=== PATIENT | female | born 1960 | race Caucasian/White ===

== ENCOUNTER → 2020-05-21 16:14 | Outpatient (CLI) | payer OTHER, SELFPAY ==
--- NOTE | ~2020-05-21 | XR_ITS ---
EXAMINATION: XR ribs LT 2V w CXR 2V EXAM DATE: 05/21/2020 16:43 INDICATION: R07.81 - Pleurodynia . TECHNIQUE: Frontal projection of the left ribs, oblique projection of the left ribs, frontal and late ral chest x-ray(s) for interpretation. Comparison is made to prior examination from 05/22/2018. FINDINGS: There are no displaced acute left rib fractures identified. There is no soft tissue abnor mality seen. Moderate chronic hyperinflation. Midthoracic posterior fusion hardware at one level with mild to moderate anterior wedging of the lower fused level. No confluent consolidation, pneumothorax or pleural effusion suspected. IMPRESSION: No displaced left rib fractures. Chronic hyperinflation. Reviewed, dictated and finalized at location A.
--- NOTE | ~2020-05-21 | XR_ITS ---
EXAMINATION: XR thoracic spine 3V EXAM DATE: 05/21/2020 16:43 INDICATION: M54.9 - Dorsalgia, unspecified . TECHNIQUE: Frontal and lateral projections of the thoracic spine as well as lateral swimmers projecti on of the upper thoracic spine for interpretation. Comparison is made to prior examination from 2015. FINDINGS: There is mid thoracic posterior pedicular fusion hardware, might be at T6-7, with hardware intact. There is mild to moderate anterior wedging of the lower of these 2 vertebral bodies which is chronic and minimally progressed compared to prior study. This is causing some kyphosis. The vertebra l bodies are aligned in the AP dimension. No other compression fractures. Paraspinal soft tissue is u nremarkable. No appreciable scoliosis. IMPRESSION: Intact mid thoracic pedicular screws. Mild interval progression of T7 compression fractu re. Reviewed, dictated and finalized at location A. IMPRESSION: Intact mid thoracic pedicular screws. Mild interval progression of T7 compression fracture.
== END ==
PROVIDERS: PCP Family Medicine; Visit Provider Family Medicine
DX: M54.9 Dorsalgia, unspecified (principal); R07.81 Pleurodynia; R91.8 Other nonspecific abnormal finding of lung field; M48.54XA Collapsed vertebra, not elsewhere classified, thoracic region, initial encounter for fracture
CPT/HCPCS: 71046; 71100; 72072

== ENCOUNTER 2020-07-17 01:26 | Outpatient (CLI) | payer OTHER, SELFPAY ==
[2020-07-18 01:23] LABS: SARS-CoV-2 RNA PCR Negative
== END 2020-07-17 01:27 | disposition home or self-care (01) ==
LOC: ANHCOVIDDT 01:26
PROVIDERS: Visit Provider Internal Medicine Critical Care Medicine
DX: Z20.828 Contact with and (suspected) exposure to other viral communicable diseases (principal)
CPT/HCPCS: 87635; C9803; U0003

== ENCOUNTER 2020-07-20 07:48 | Outpatient (CLI) | payer OTHER, SELFPAY ==
--- NOTE | 2020-09-03 17:17 | WPDSLEEPSTUD ---
Sleep Study Date of Study: 07/20/20 Ordering Provider: Gracie Power MD Interpreting Physician: Gracie Power MD Sleep Study Type: Polysomnogram Height: 1.63 m Weight: 70.307 kg Body Mass Index: 26.6 Neck Circumference: 35.56 cm [place]: 12 Reason for Sleep Study SRAAH, has used CPAP, now using a mandibular advancement device Sleep History Palak Gramajo is a 60 year old female who was diagnosed with SARAH in 2011. She was not able to tolerate CPAP. She had a UPPP in 2012 for treatment of obstructive sleep apnea. In 2014 and again in 2017, she used CPAP. She is now on treatment with a mandibular advancement device. She wakes up during the night, and has excessive daytime sleepiness. She constantly snores, and it is always loud enought that others compalin about it. She Never awakens at night with heartburn, belching or coughing. She never wakens from sleep feeling short of breath. She rarely has trouble sleeping with a cold. She rarely wakes up gasping for breath during the night. She frequently has breathing problems reported to her by others. She occasionally sweats excessively at night and rarely notices her heart pounding or beating irregularly at night. She occasionally falls asleep during the day, rarely involuntarily, never while driving. She does not have loss of muscle tone with strong emotion. She occasionally has date occult he is due to excessive sleepiness. She works as a food inspector. she does not feel paralyzed on waking or falling asleep and does not have vivid dreamlike scenes upon awakening or falling asleep. She is not afraid to go to sleep. She occasionally has nightmares. She rarely remembers her dreams. She occasionally has racing thoughts. She occasionally has feelings of sadness, depression and anxiety. She rarely has muscular tension. She occasionally notices parts of her body jerking, occasionally kicks at night, occasionally has crawling and aching feelings in her legs and leg pain during the night. She rarely has morning jaw pain. She occasionally grinds her teeth during sleep. she rarely is bothered by pain during the day, rarely awakened by pain at night, rarely feels stiff in the morning with sore achy muscles or pain in the neck and spine. She has fatigue, memory problems, headaches and palpitations Normal bedtime is 9:30 p.m. falling asleep within an hour, waking twice at night to urinate. Sometime she walks around the house. She wakes in the morning at 5:30 a.m.. On the weekends she stays awake until 10:30 p.m. and wakes at 7:30 a.m. in the morning. She estimates that she gets 7-8 hours of sleep per night. she takes naps in the afternoon or evening. A short 10 or 15 minutes nap can be refreshing. She is usually drowsy in the morning for 2 hours or longer. Habits: Never smoked tobacco. Caffeine 1 cup per day. No alcohol. No recreational drugs. FORMERLY [facility] Past Medical History Medical History Anxiety Hypothyroidism Lumbar radiculopathy Mixed hyperlipidemia Nonintractable migraine SARAH (obstructive sleep apnea) Recurrent major depressive disorder, in partial remission Vitamin D deficiency Surgical History Surgical History History of thoracic spinal fusion Family History Family History Other Diabetes mellitus Family history of juvenile rheumatoid arthritis Social History Social History Smoking status: Never smoker Second hand tobacco smoke exposure: No Alcohol intake: current Alcohol use details: rare Substance use: never Substance use type: does not use Living arrangements: with family Occupation/Education: occupation Gender identity (if verbalized by the patient): Female Medications Home Medications Medication Instr
[2020-09-17 14:38] VITALS: BMI 26.6
== END 2020-07-20 07:49 | disposition home or self-care (01) ==
LOC: ANHCSM 07:49
PROVIDERS: Visit Provider Internal Medicine Critical Care Medicine
DX: G47.33 Obstructive sleep apnea (adult) (pediatric) (principal)
CPT/HCPCS: 95810

== ENCOUNTER 2020-11-29 09:48 | Outpatient (CLI) | payer OTHER, SELFPAY ==
--- NOTE | ~2020-11-29 | XR_ITS ---
EXAMINATION: XR thoracic spine 3V DATE: 11/29/2020 10:16 INDICATION: Thoracic back pain TECHNIQUE: AP, lateral and lateral swimmer's views of the thoracic spine were obtained. COMPARISON: 05/21/2020 FINDINGS: Again noted are changes of posterior fusion at T6 and T7. There is a stable anterior compre ssion deformity of T7. Severe loss of intervertebral disc space height is seen at T6-7. Bone alignmen t is normal. No new fracture is present. IMPRESSION: 1. Stable changes of posterior fusion at T6-7 and anterior wedging at T7 without acute findings or si gnificant interval change. Reviewed, dictated and finalized at location A. IMPRESSION: 1. Stable changes of posterior fusion at T6-7 and anterior wedging at T7 withou t acute findings or significant interval change.
== END 2020-11-29 09:49 | disposition home or self-care (01) ==
LOC: ANHIMG 09:54
PROVIDERS: PCP Family Medicine; Visit Provider Family Medicine
DX: M54.6 Pain in thoracic spine (principal); Z98.1 Arthrodesis status
CPT/HCPCS: 72072

== ENCOUNTER → 2021-01-21 17:02 | Outpatient (CLI) | payer OTHER, SELFPAY ==
--- NOTE | ~2021-01-21 | MM_ITS ---
EXAMINATION: MM screening [facility] BI w joshua HISTORY: Screening TECHNIQUE: Craniocaudal and mediolateral oblique 3-D tomosynthesis images were obtained and synthetic 2-D images were generated. CAD analysis was submitted and interpreted. COMPARISON: Comparison to multiple prior studies sequentially, with oldest reviewed study dated 05/30. BREAST PARENCHYMAL COMPOSITION: There are scattered areas of fibroglandular density. FINDINGS: There is no evidence of suspicious mass, calcification, or architectural distortion to sugg est malignancy in either breast. There has been no suspicious interval change. IMPRESSION: 1. No mammographic evidence of malignancy. 2. Recommend routine screening mammography in one year. BI-RADS Category 1: Negative Reviewed, dictated and finalized at location A.
== END ==
PROVIDERS: PCP Family Medicine; Visit Provider Nurse Practitioner Obstetrics & Gynecology
DX: Z12.31 Encounter for screening mammogram for malignant neoplasm of breast (principal)
CPT/HCPCS: 77063; 77067

== ENCOUNTER 2021-02-22 10:06 | Emergency (ER) | payer OTHER, SELFPAY ==
[2021-02-22 10:22] VITALS: BP 119/71; PULSE 79; RESP 16; TEMP 37.1
--- NOTE | 2021-02-22 10:45 | ED.URI ---
HPI - URI/Sore Throat General Chief Complaint: Upper Respiratory Infection Stated Complaint: SORE THROAT/HEADACHE Time Seen by Provider: 02/22/21 10:50 Source: patient and RN notes reviewed Mode of arrival: ambulatory Limitations: no limitations History of Present Illness HPI Narrative: 60-year-old female presents with concern for sore throat, rhinorrhea, nasal congestion, cough. She denies fever, body aches, chills, sweats. Reports she was vaccinated for Covid in October. Reports she took NyQuil last night which helped her sleep. She reports she had diarrhea overnight. She denies any nausea or vomiting. Denies known sick contacts. MD elicited complaint: sore throat Related Data Home Medications Medication Instructions Recorded Confirmed docosahexaenoic acid 200 mg capsule mg PO 09/06/20 01/03/21 abaloparatide 80 mcg SUBCUT DAILY 01/05/21 Allergies Allergy/AdvReac Type Severity Reaction Status Date / Time Penicillins Allergy Unknown Unknown Verified 02/22/21 10:23 Review of Systems Review of Systems: Narrative: CONSTITUTIONAL: Denies malaise, chills, sweats, or fever. EYES: Denies visual changes, redness, or discharge. ENT: Reports rhinorrhea, congestion, sore throat. Denies sinus pain, otalgia CARDIOVASCULAR: Denies chest pain, palpitations, or edema. RESPIRATORY: Reports cough. Denies dyspnea. GASTROINTESTINAL: Denies abdominal pain, nausea, vomiting, diarrhea SKIN: Denies rash or itching. MUSCULOSKELETAL: Denies myalgia. NEUROLOGIC: Denies headache. All systems reviewed & are unremarkable except as noted in HPI and below PMFSH Past Medical History Medical History Anxiety Hypothyroidism Lumbar radiculopathy Mixed hyperlipidemia Nonintractable migraine SARAH (obstructive sleep apnea) Recurrent major depressive disorder, in partial remission Restless legs syndrome (RLS) Vitamin D deficiency Surgical History Surgical History History of thoracic spinal fusion Family History Family History Other Diabetes mellitus Family history of juvenile rheumatoid arthritis Social History Social History Second hand tobacco smoke exposure: No Alcohol intake: current Alcohol use details: rare Substance use: never Substance use type: does not use Gender identity (if verbalized by the patient): Female Comments At time of signature, agree with nursing past medical, surgical, social and family history. There is no relevant family history pertinent to the presenting complaint Exam Narrative: Exam Narrative: GENERAL: Well-appearing, well-nourished, and in no acute distress. HEAD: Normocephalic EYES: PERRLA, conjunctivae clear ENT: Nares clear. Mucous membranes moist. TM pearly ayon with dull light reflex bilaterally; no tragal tenderness. Oropharynx not erythematous without lesions. Tonsils not enlarged and without exudate, no drooling, no hoarseness, no trismus, uvula midline. NECK: Supple. No lymphadenopathy CHEST: Clear to auscultation, breath sounds equal. No wheezing, rhonchi, rales, or stridor. No respiratory distress, speaks in full sentences. HEART: Regular rate and rhythm. No murmur heard. SKIN: Warm, dry, no rash. NEURO: Alert and oriented x3. PSYCH: Normal mood and affect Course Course Emergency Course: Patient is aware of diagnosis, understands and agrees to treatment plan. Anticipatory guidance given. Patient agrees to follow-up as directed and is aware of reasons to seek care at the emergency department. Portions of this record may have been created with voice recognition software Vital Signs Vital signs: Vital Signs Temperature 98.7 F 02/22/21 10:22 Pulse Rate 79 02/22/21 10:22 Respiratory Rate 16 02/22/21 10:22 Blood Pressure 119/71 02/22/21 10:22 Temp
== END 2021-02-22 11:40 | disposition home or self-care (01) ==
PROVIDERS: Emergency Provider Nurse Practitioner; PCP Family Medicine
DX: J06.9 Acute upper respiratory infection, unspecified (principal); Z20.822 Contact with and (suspected) exposure to COVID-19; E03.9 Hypothyroidism, unspecified; E78.2 Mixed hyperlipidemia; G25.81 Restless legs syndrome; F41.9 Anxiety disorder, unspecified; M54.16 Radiculopathy, lumbar region; G47.33 Obstructive sleep apnea (adult) (pediatric)
CPT/HCPCS: 87081; 87426; 87880; 99213; C9803; G0463

== ENCOUNTER 2021-03-27 22:57 | Emergency (ER) | payer OTHER, SELFPAY ==
[2021-03-27 23:15] VITALS: BP 153/92; PULSE 73; RESP 19; TEMP 36.6; O2SAT 96
--- NOTE | 2021-03-27 23:35 | ED.HA ---
HPI - Headache General Chief Complaint: Headache Stated Complaint: Migraine Time Seen by Provider: 03/27/21 23:25 Source: RN notes reviewed History of Present Illness HPI Narrative: Patient presents emergency room from home for migraine headache. Patient states symptoms again approximately 9 PM tonight. She states she took her home medications for migraines but they were unsuccessful and came to the ER for further evaluation states the pain is located in the back of her head and is consistent with her previous migraines and is mild nausea with the symptoms she denies any fevers or chills vision changes, chest pain, shortness of breath vomiting diarrhea or any other symptom Related Data Home Medications Medication Instructions Recorded Confirmed docosahexaenoic acid 200 mg capsule 200 mg PO DAILY 09/06/20 02/22/21 abaloparatide 80 mcg SUBCUT DAILY 01/05/21 02/22/21 calcium carbonate 600 mg calcium 600 mg PO DAILY 03/23/21 (1,500 mg) tablet omega-3 650 mg-dha 400 mg-epa 200 cap PO 03/23/21 mg-fish oil-vit D3 300 unit capsule Allergies Allergy/AdvReac Type Severity Reaction Status Date / Time Penicillins Allergy Unknown Unknown Verified 03/27/21 23:30 Review of Systems Review of Systems: Gen.: Denies fevers or chills Eyes: Denies eye pain or visual change ENT: Denies congestion Respiratory: Denies shortness of breath or cough CV: Denies chest pain or palpitations GI: Denies abdominal pain , emesis or diarrhea reports nausea Musculoskeletal: Denies back pain or muscle pain Neuro: Denies numbness, tingling, weakness or focal weakness Skin: Denies rash Except as documented, all other systems reviewed and negative [facility] Past Medical History Medical History Anxiety Hypothyroidism Lumbar radiculopathy Mixed hyperlipidemia Nonintractable migraine SARAH (obstructive sleep apnea) Recurrent major depressive disorder, in partial remission Restless legs syndrome (RLS) Vitamin D deficiency Surgical History Surgical History History of thoracic spinal fusion Family History Family History Other Diabetes mellitus Family history of juvenile rheumatoid arthritis Social History Social History Second hand tobacco smoke exposure: No Alcohol intake: current Alcohol use details: rare Substance use: never Substance use type: does not use Gender identity (if verbalized by the patient): Female Exam Narrative: APPEARANCE: No acute distress, nontoxic, resting in bed EYES: EOMI, PERRL HEENT: Normocephalic, atraumatic, OMM RESPIRATORY: No respiratory distress Clear to auscultation bilaterally with no rhonchi wheezing or rales. CARDIOVASCULAR: Regular rate and rhythm without murmurs rubs or gallops. ABDOMINAL: Soft, nontender, nondistended, no rebound or guarding MUSCULOSKELETAl: Moves all extremities. No clubbing, cyanosis or edema. NEURO: Awake and alert x 4. Following commands, speech normal, no focal deficits SKIN:: Warm, dry. No rashes lesions or abrasions PSYCHIATRIC: Normal affect/mood, Course Course Emergency Course: Patient states headache is resolved at this time Discussed with patient results of workup and diagnosis. Discussed need for follow-up with primary care, proper use of medication, and reasons to return to the emergency department. Patient understands and agrees to current treatment plan Vital Signs Vital signs: Vital Signs Temperature 97.8 F 03/27/21 23:15 Pulse Rate 73 03/27/21 23:15 Respiratory Rate 19 03/27/21 23:15 Blood Pressure 153/92 H 03/27/21 23:15 Pulse Oximetry 96 03/27/21 23:15 Temperature 97.8 F 03/27/21 23:15 Pulse Rate 65 03/27/21 23:51 Respiratory Rate 15 03/27/21 23:51 Blood Pressure 163/95 H 03/27/21 23:51 Pulse
[2021-03-27 23:51] VITALS: BP 163/95; PULSE 65; RESP 15; O2SAT 96
[2021-03-27] MEDS: KETOROLAC 30 MG/ML VIAL (*BKC) IV PUSH (23:51)
[2021-03-27] MEDS: ONDANSETRON INJ 4 MG/2 ML VIAL IV PUSH (23:51)
[2021-03-27] MEDS: diphenhydrAMINE HCl INJ 50 MG/ML VIAL 25 MG IV PUSH (23:51)
[2021-03-27] MEDS: SODIUM CHLORIDE 0.9% IV 1,000 ML 999 ML IV CONT (23:51)
[2021-03-28 00:42] VITALS: BP 137/79; PULSE 65; RESP 17; O2SAT 97
== END 2021-03-28 00:48 | disposition home or self-care (01) ==
PROVIDERS: Emergency Provider Emergency Medicine; PCP Family Medicine
DX: G43.909 Migraine, unspecified, not intractable, without status migrainosus (principal); E03.9 Hypothyroidism, unspecified; E78.2 Mixed hyperlipidemia; G47.33 Obstructive sleep apnea (adult) (pediatric); G25.81 Restless legs syndrome; E55.9 Vitamin D deficiency, unspecified; F41.9 Anxiety disorder, unspecified; F33.9 Major depressive disorder, recurrent, unspecified
CPT/HCPCS: 96361; 96374; 96375; 99284; J1200; J1885; J2405; J7030

== ENCOUNTER 2021-05-17 02:50 | Day surgery (SDC) | payer OTHER, SELFPAY ==
[2021-05-02 15:39] VITALS: BMI 27.6
[2021-05-17 08:54] VITALS: BP 146/82; PULSE 83; RESP 16; TEMP 35.9; O2SAT 98; BMI 26.3
[2021-05-17] MEDS: LACTATED RINGERS 1,000 ML 150 ML IV CONT (09:09)
--- NOTE | 2021-05-17 09:20 | WPDGICN ---
Assessment and Plan Assessment and plan (1) Encounter for screening colonoscopy: Code(s): Z12.11 - Encounter for screening for malignant neoplasm of colon Status: Acute Assessment and Plan: Patient presents today for screening colonoscopy. She appears to be at average risk for colon polyps. She does admit to a regular stools consistent with irritable bowel syndrome. Fiber supplements are encouraged. Further recommendations may be given after endoscopy. GI Consult Note Consult date/time: 05/17/21 09:20 HPI: Palak Gramajo is a 60 year old female Presents for screening colonoscopy. Patient states that her current weight appetite is normal. She does have some regularity to her bowel habits with soft stools alternating with hard stools. Several months ago had bout of abdominal pain treated with antibiotics for presumed diverticulitis. She presents today for surveillance colonoscopy. Currently she denies any pain or bleeding. Review of Systems Review of Systems: All systems reviewed & are unremarkable except as noted in HPI and below PMFSH Past Medical History Medical History Anxiety Hypothyroidism Lumbar radiculopathy Mixed hyperlipidemia Nonintractable migraine SARAH (obstructive sleep apnea) Recurrent major depressive disorder, in partial remission Restless legs syndrome (RLS) Vitamin D deficiency Surgical History Surgical History History of thoracic spinal fusion Family History Family History Other Diabetes mellitus Family history of juvenile rheumatoid arthritis Social History Social History Smoking status: Never smoker Second hand tobacco smoke exposure: No Alcohol intake: current Alcohol use details: rare use Substance use: never Substance use type: does not use Living arrangements: with family Additional living arrangements comments: lives with spouse Gender identity (if verbalized by the patient): Female Spiritual care concerns: No Meds Home Medications and Allergies Home Medications Medication Instructions Recorded Confirmed Type ferrous sulfate 325 mg (65 mg 325 mg PO DAILY #30 tablet 12/16/20 05/17/21 Rx iron) tablet abaloparatide 80 mcg SUBCUT DAILY 01/05/21 05/17/21 History levothyroxine 50 mcg tablet 50 mcg PO DAILY #90 tablet 01/12/21 05/17/21 Rx rizatriptan 10 mg tablet See Rx Instructions .ROUTE 01/20/21 05/17/21 Rx .COMPLEX #9 tablet simvastatin 20 mg tablet 20 mg PO DAILY #30 tablet 03/03/21 05/17/21 Rx calcium carbonate 600 mg calcium 600 mg PO DAILY 03/23/21 05/17/21 History (1,500 mg) tablet omega-3 650 mg-dha 400 mg-epa 200 1 cap PO DAILY 03/23/21 05/17/21 History mg-fish oil-vit D3 300 unit capsule citalopram 40 mg tablet 40 mg PO DAILY #30 tablet 03/31/21 05/17/21 Rx tramadol 50 mg tablet 50 mg PO Q6H PRN #120 tablet 04/17/21 05/17/21 Rx Allergies Allergy/AdvReac Type Severity Reaction Status Date / Time Penicillins Allergy Unknown Unknown Verified 05/17/21 08:52 Vital Signs Vital Signs - 24 hr 05/17/21 08:54 Temperature 96.6 F L Pulse Rate 83 Respiratory Rate 16 Blood Pressure 146/82 H Pulse Oximetry 98 Exam Narrative: Physical exam reveals patient to be alert. Vital signs stable. HEENT exam is unremarkable. Patient is anicteric. Lungs are clear to auscultation and percussion. Heart is without murmur or extra sounds. Abdominal exam bowel sounds are present soft nontender with no organomegaly. Digital external rectal exam is normal.
--- NOTE | 2021-05-17 09:21 | WPDANESEPPF ---
Anes - Initial Pre Proc Eval Procedure: Operation Date: 05/17/21 10:15 Proposed Procedures p Screening Colonoscopy - Pardeep Ohara MD Date/Time: 05/17/21 09:21 Surgeon: Pardeep Ohara MD Pre Op Diagnosis: neoplasm screening Patient Data Age: 60 Gender: F Height: 1.63 m Weight: 69.6 kg Last Vital Signs Temp 35.9 C L 05/17/21 08:54 Pulse 83 05/17/21 08:54 Resp 16 05/17/21 08:54 BP 146/82 H 05/17/21 08:54 Pulse Ox 98 05/17/21 08:54 Allergies Allergy/AdvReac Type Severity Reaction Status Date / Time Penicillins Allergy Unknown Unknown Verified 05/17/21 08:52 Home Medications Medication Instructions Recorded Confirmed Type ferrous sulfate 325 mg (65 mg 325 mg PO DAILY #30 tablet 12/16/20 05/17/21 Rx iron) tablet abaloparatide 80 mcg SUBCUT DAILY 01/05/21 05/17/21 History levothyroxine 50 mcg tablet 50 mcg PO DAILY #90 tablet 01/12/21 05/17/21 Rx rizatriptan 10 mg tablet See Rx Instructions .ROUTE 01/20/21 05/17/21 Rx .COMPLEX #9 tablet simvastatin 20 mg tablet 20 mg PO DAILY #30 tablet 03/03/21 05/17/21 Rx calcium carbonate 600 mg calcium 600 mg PO DAILY 03/23/21 05/17/21 History (1,500 mg) tablet omega-3 650 mg-dha 400 mg-epa 200 1 cap PO DAILY 03/23/21 05/17/21 History mg-fish oil-vit D3 300 unit capsule citalopram 40 mg tablet 40 mg PO DAILY #30 tablet 03/31/21 05/17/21 Rx tramadol 50 mg tablet 50 mg PO Q6H PRN #120 tablet 04/17/21 05/17/21 Rx Patient hx anesthesia problems: none Family hx anesthesia problems: none Results Review: All pre-operative results and documents have been reviewed as part of the pre-operative evaluation. [facility] Past Medical History Medical History Anxiety Hypothyroidism Lumbar radiculopathy Mixed hyperlipidemia Nonintractable migraine SARAH (obstructive sleep apnea) Recurrent major depressive disorder, in partial remission Restless legs syndrome (RLS) Vitamin D deficiency Surgical History Surgical History History of thoracic spinal fusion Family History Family History Other Diabetes mellitus Family history of juvenile rheumatoid arthritis Social History Social History Smoking status: Never smoker Second hand tobacco smoke exposure: No Alcohol intake: current Alcohol use details: rare use Substance use: never Substance use type: does not use Living arrangements: with family Additional living arrangements comments: lives with spouse Gender identity (if verbalized by the patient): Female Spiritual care concerns: No Anes - Eval Final PreProcedure Day of Procedure 05/17/21 09:21 Patient weight: overweight Heart: regular rate and rhythm Lungs: clear to auscultation Airway: Mallampati scale class II Neurological: alert and oriented Last oral intake: >/= 8 hours ASA classification: III Emergent: no Anesthetic plan: proceed Anesthesia type and monitoring: general GIVS and standard monitoring Results Review: All pre-operative results and documents have been reviewed as part of the pre-operative evaluation. Informed Consent: The patient's anesthetic plan and its attendant risks and benefits were discussed with the patient/family/POA. Questions were solicited and answers provided to the satisfaction of the patient/family/POA.
[2021-05-17] MEDS: SIMETHICONE ORAL SUSPENSION 20 MG/0.3 ML 30 ML BOTTLE 0.6 ML IRRIGATION (09:49)
[2021-05-17 10:00] VITALS: BP 76/39; PULSE 60; RESP 14; O2SAT 95
[2021-05-17 10:10] VITALS: BP 94/54; PULSE 62; RESP 16; O2SAT 97
[2021-05-17 10:20] VITALS: BP 109/71; PULSE 57; RESP 13; O2SAT 100
== END 2021-05-17 10:33 | disposition home or self-care (01) ==
PROVIDERS: PCP Family Medicine; Visit Provider Internal Medicine Gastroenterology
PROC: 0DJD8ZZ Inspection of Lower Intestinal Tract, Via Natural or Artificial Opening Endoscopic (ICD-10-PCS; CPT 45378; principal; 2021-05-17 10:15)
DX: Z12.11 Encounter for screening for malignant neoplasm of colon (principal); K57.30 Diverticulosis of large intestine without perforation or abscess without bleeding; E03.9 Hypothyroidism, unspecified; E78.2 Mixed hyperlipidemia; E55.9 Vitamin D deficiency, unspecified; M54.16 Radiculopathy, lumbar region; G47.33 Obstructive sleep apnea (adult) (pediatric); G25.81 Restless legs syndrome; F32.4 Major depressive disorder, single episode, in partial remission; F41.9 Anxiety disorder, unspecified
CPT/HCPCS: 45378; J2704; J7120

== ENCOUNTER 2022-08-12 08:53 | Emergency (ER) | payer OTHER, SELFPAY ==
[2022-08-12 09:00] VITALS: BP 132/78; PULSE 73; RESP 20; TEMP 36.8; O2SAT 97
--- NOTE | 2022-08-12 09:07 | ED.EAR ---
HPI - Ear Problem General Chief complaint: Ear Stated complaint: ear pain and headache Time Seen by Provider: 08/12/22 09:08 History of Present Illness HPI Narrative: PATIENT PRESENTS WITH RIGHT EAR PAIN AND RIGHT-SIDED SINUS PRESSURE WITH A SINUS HEADACHE. NO SHORTNESS OF BREATH AND NO CHEST PAIN. Related Data Home Medications Medication Instructions Recorded Confirmed omega-3 650 mg-dha 400 mg-epa 200 1 cap PO DAILY 03/23/21 08/12/22 mg-fish oil-vit D3 300 unit capsule ([place]-3 Plus Vitamin D3) calcium carbonate 600 mg calcium 600 mg PO .every other day 08/08/21 08/12/22 (1,500 mg) tablet (Calcium) Allergies Allergy/AdvReac Type Severity Reaction Status Date / Time Penicillins Allergy Unknown Unknown Verified 08/12/22 09:00 Review of Systems Review of Systems: CONSTITUTIONAL: DENIES CHILLS, OR SWEATS. REPORTS FEVER AND GENERALIZED BODY ACHES EYES: DENIES VISUAL CHANGES, REDNESS, OR DISCHARGE. ENT: DENIES OTALGIA. REPORTS NASAL CONGESTION RUNNY NOSE AND SORE THROAT CARDIOVASCULAR: DENIES CHEST PAIN, PALPITATIONS, OR EDEMA. RESPIRATORY: DENIES DYSPNEA. REPORTS OCCASIONAL COUGH GASTROINTESTINAL: DENIES ABDOMINAL PAIN, NAUSEA, VOMITING, OR DIARRHEA. GENITOURINARY: DENIES DYSURIA OR HEMATURIA. SKIN: DENIES RASH OR ITCHING. MUSCULOSKELETAL: DENIES BACK PAIN, JOINT PAIN, OR MYALGIA. REPORTS GENERALIZED BODY ACHES NEUROLOGIC: DENIES HEADACHE, NUMBNESS, OR WEAKNESS. PSYCHIATRIC: DENIES ANXIETY OR DEPRESSION. [facility] Past Medical History Medical History Anxiety Hypothyroidism Lipoma of back Lumbar radiculopathy Mixed hyperlipidemia Nonintractable migraine SARAH (obstructive sleep apnea) Recurrent major depressive disorder, in partial remission Restless legs syndrome (RLS) Vitamin D deficiency Surgical History Surgical History History of thoracic spinal fusion Family History Family History Other Diabetes mellitus Family history of juvenile rheumatoid arthritis Social History Social History (Updated 04/04/22 @ 15:59 by Aurora Mejia CMA) Smoking status: Never smoker Second hand tobacco smoke exposure: No Alcohol intake: current Alcohol use details: rare use Substance use: never Substance use type: does not use Additional living arrangements comments: lives with spouse Gender identity (if verbalized by the patient): Female Spiritual care concerns: No Comments AT TIME OF SIGNATURE, AGREE WITH NURSING PAST MEDICAL, SURGICAL, SOCIAL AND FAMILY HISTORY. THERE IS NO RELEVANT FAMILY HISTORY PERTINENT TO THE PRESENTING COMPLAINT Exam Narrative: THE PATIENT IS A WELL-DEVELOPED, WELL-NOURISHED IN NO ACUTE DISTRESS. SKIN: SKIN IS WARM AND DRY WITHOUT ERYTHEMA, SWELLING OR EXUDATE. THERE IS GOOD TURGOR. NO TENTING. HEAD: ATRAUMATIC. NORMOCEPHALIC. NO TEMPORAL OR SCALP TENDERNESS. EYES: MOIST AND BRIGHT. SCLERA AND CONJUNCTIVAE NORMAL. NO DISCHARGE. PERRLA. EXTRAOCULAR MOTIONS INTACT. GROSS VISUAL ACUITY INTACT. EARS: PINNA IS NORMAL SHAPE AND CONTOUR. CLEAR EXTERNAL AUDITORY CANALS. LEFT TM PEARLY CHANEY WITH GOOD CONE OF LIGHT, NO ERYTHEMA OR SUPPURATION. RIGHT TM BULGING WITH MODERATE ERYTHEMA TO CANAL BILATERAL CERUMEN NOTED NO GROSS HEARING DEFICIT. NOSE: PINK, MOIST MUCOSA WITH GOOD AIR MOVEMENT. CLEAR RHINORRHEA WITHOUT NASAL FLARING. SEPTUM MIDLINE. RIGHT TURBINATES INFLAMED MOUTH: MOIST MUCOUS MEMBRANES. THROAT; MILD ERYTHEMA NOTED TO POSTERIOR OROPHARYNX WITH MODERATE POSTNASAL DRAINAGE. WITHOUT EXUDATE OR ULCERATION.. UVULA MIDLINE. NORMAL MOVEMENT OF SOFT PALATE. NECK: SUPPLE AND NONTENDER WITH FULL RANGE OF MOTION WITHOUT DISCOMFORT. NO MENINGEAL SIGNS. LUNGS: EQUAL AND BILATERAL BREATH SOUNDS WITHOUT WHEEZES, RALES OR RHONCHI. CHEST: THE CHEST WALL IS WITHOUT RETRACTIONS OR USE OF ACCESSORY MUSCLE
== END 2022-08-12 09:21 | disposition home or self-care (01) ==
PROVIDERS: Emergency Provider Nurse Practitioner Family; PCP Family Medicine
DX: H66.91 Otitis media, unspecified, right ear (principal); J01.00 Acute maxillary sinusitis, unspecified; E03.9 Hypothyroidism, unspecified; E78.2 Mixed hyperlipidemia; G25.81 Restless legs syndrome; E55.9 Vitamin D deficiency, unspecified
CPT/HCPCS: 99213; G0463

== ENCOUNTER 2022-10-26 09:28 | Emergency (ER) | payer OTHER, SELFPAY ==
--- NOTE | 2022-10-26 09:29 | ED.SKABFB ---
HPI - Skin/Abscess/Foreign Bdy General Chief complaint: Wound/Laceration Stated complaint: right pointer lac Time Seen by Provider: 10/26/22 09:29 Source: patient and RN notes reviewed History of Present Illness HPI narrative: Patient is 62-year-old female who presents to urgent care with complaints of a right index finger laceration. Patient is right-hand dominant. States that it happened last night around 9:00 p.m. when she was doing dishes. States that she had a 1 night. Patient states that she sat in the emergency room for approximately 4-6 hours and they did clean the wound and bandage it however she left prior to be seen by provider. Patient is concerned about a tetanus vaccination. No other acute complaints. No acute distress noted. Patient aware of the plan of care. Some parts of this dictation were generated by voice recognition software and may contain typographical and/or grammatical inaccuracies. Related Data Home Medications Medication Instructions Recorded Confirmed omega-3 650 mg-dha 400 mg-epa 200 1 cap PO DAILY 03/23/21 10/26/22 mg-fish oil-vit D3 300 unit capsule ([place]-3 Plus Vitamin D3) calcium carbonate 600 mg calcium 600 mg PO .every other day 08/08/21 10/26/22 (1,500 mg) tablet (Calcium) Allergies Allergy/AdvReac Type Severity Reaction Status Date / Time Penicillins Allergy Unknown Unknown Verified 10/26/22 09:51 Review of Systems Review of Systems: CONSTITUTIONAL: Denies fever, chills, or sweats. EYES: Denies visual changes, redness, or discharge. ENT: Denies rhinorrhea, congestion, sore throat, or otalgia. CARDIOVASCULAR: Denies chest pain, palpitations, or edema. RESPIRATORY: Denies cough or dyspnea. GASTROINTESTINAL: Denies abdominal pain, nausea, vomiting, or diarrhea. GENITOURINARY: Denies dysuria or hematuria. SKIN: Reports of a laceration to the distal tip of the right index finger. Denies rash or itching. MUSCULOSKELETAL: Denies back pain, joint pain, or myalgia. NEUROLOGIC: Denies headache, numbness, or weakness. All other systems reviewed are negative, except as documented in HPI. [facility] Past Medical History Medical History Anxiety Hypothyroidism Lipoma of back Lumbar radiculopathy Mixed hyperlipidemia Nonintractable migraine SARAH (obstructive sleep apnea) Recurrent major depressive disorder, in partial remission Restless legs syndrome (RLS) Vitamin D deficiency Surgical History Surgical History History of thoracic spinal fusion Family History Family History Other Diabetes mellitus Family history of juvenile rheumatoid arthritis Social History Social History (Updated 08/14/22 @ 15:19 by Doris Fajardo [facility]) Smoking status: Never smoker Second hand tobacco smoke exposure: No Alcohol intake: current Alcohol use details: rare use Substance use: never Substance use type: does not use Lack of Transportation: No Lack of Food: Never True Current Housing: I Have Housing Concerned About Future Housing: No Difficulty Paying Gas/Electric Bills: No Difficulty Paying for Meds: No Currently Unemployed: No Education: High School Diploma/GED Difficulty w/ Childcare or Family Care: No Living arrangements: with family Additional living arrangements comments: lives with spouse Occupation/Education: occupation Gender identity (if verbalized by the patient): Female Sexual Orientation (if Verbalized by the Patient): Straight or Heterosexual Spiritual care concerns: No Agree to blood products: Yes Comments At the time of my signature, I reviewed and agree with the nursing past medical, surgical, social, and family history. There is no relevant family history pertinent to the patient complaint. Exam Narrative: GENERAL: This is a well-nourished, well-developed
[2022-10-26 09:44] VITALS: BP 130/79; PULSE 71; RESP 20; TEMP 36.7; O2SAT 97
[2022-10-26] MEDS: TETANUS,DIPHTHERIA,AC PERTUSSIS ADULT (0.5 ML) BOOSTRIX IM (10:13)
== END 2022-10-26 10:14 | disposition home or self-care (01) ==
PROVIDERS: Emergency Provider Nurse Practitioner Family; PCP Family Medicine
DX: S61.200A Unspecified open wound of right index finger without damage to nail, initial encounter (principal); X58.XXXA Exposure to other specified factors, initial encounter; Y93.G1 Activity, food preparation and clean up; Z23 Encounter for immunization; E03.9 Hypothyroidism, unspecified; E78.2 Mixed hyperlipidemia; G25.81 Restless legs syndrome; F41.9 Anxiety disorder, unspecified; F33.41 Major depressive disorder, recurrent, in partial remission
CPT/HCPCS: 90471; 90715; 99212; G0463

== ENCOUNTER 2023-02-07 08:03 | Emergency (ER) | payer OTHER, SELFPAY ==
[2023-02-07 08:07] VITALS: BP 130/81; PULSE 68; RESP 16; TEMP 36.5; O2SAT 100
--- NOTE | 2023-02-07 08:13 | ED.SKABFB ---
HPI - Skin/Abscess/Foreign Bdy General Chief complaint: Skin/Abscess/Foreign Body Stated complaint: rash on face Time Seen by Provider: 02/07/23 08:13 Source: patient and RN notes reviewed History of Present Illness HPI narrative: Patient is 62-year-old female presents to urgent care with complaints of a rash that started on the left side of her face/neck on Sunday after playing in the [place] with her grand children. Patient states that it is itchy and slightly painful. Patient has been using Ivarest cream and Benadryl. No other acute complaints. No acute distress noted. Patient aware of the plan of care. Some parts of this dictation were generated by voice recognition software and may contain typographical and/or grammatical inaccuracies. Related Data Home Medications Medication Instructions Recorded Confirmed omega-3 650 mg-dha 400 mg-epa 200 1 cap PO DAILY 03/23/21 02/07/23 mg-fish oil-vit D3 300 unit capsule ([place]-3 Plus Vitamin D3) calcium carbonate 600 mg calcium 600 mg PO .every other day 08/08/21 02/07/23 (1,500 mg) tablet (Calcium) rizatriptan 10 mg tablet 10 mg PO DAILY PRN Headache 02/07/23 02/07/23 Allergies Allergy/AdvReac Type Severity Reaction Status Date / Time Penicillins Allergy Intermediate Rash Verified 02/07/23 08:12 Review of Systems Review of Systems: CONSTITUTIONAL: Denies fever, chills, or sweats. EYES: Denies visual changes, redness, or discharge. ENT: Denies rhinorrhea, congestion, sore throat, or otalgia. CARDIOVASCULAR: Denies chest pain, palpitations, or edema. RESPIRATORY: Denies cough or dyspnea. GASTROINTESTINAL: Denies abdominal pain, nausea, vomiting, or diarrhea. GENITOURINARY: Denies dysuria or hematuria. SKIN: Itchy red rash in the left side of the face MUSCULOSKELETAL: Denies back pain, joint pain, or myalgia. NEUROLOGIC: Denies headache, numbness, or weakness. All other systems reviewed are negative, except as documented in HPI. [facility] Past Medical History Medical History Anxiety Hypothyroidism Lipoma of back Lumbar radiculopathy Mixed hyperlipidemia Nonintractable migraine SARAH (obstructive sleep apnea) Recurrent major depressive disorder, in partial remission Restless legs syndrome (RLS) Vitamin D deficiency Surgical History Surgical History History of thoracic spinal fusion Family History Family History Other Diabetes mellitus Family history of juvenile rheumatoid arthritis Social History Social History (Updated 08/14/22 @ 15:19 by Dorsi Fajardo [facility]) Smoking status: Never smoker Second hand tobacco smoke exposure: No Alcohol intake: current Alcohol use details: rare use Substance use: never Substance use type: does not use Lack of Transportation: No Lack of Food: Never True Current Housing: I Have Housing Concerned About Future Housing: No Difficulty Paying Gas/Electric Bills: No Difficulty Paying for Meds: No Currently Unemployed: No Education: High School Diploma/GED Difficulty w/ Childcare or Family Care: No Living arrangements: with family Additional living arrangements comments: lives with spouse Occupation/Education: occupation Gender identity (if verbalized by the patient): Female Sexual Orientation (if Verbalized by the Patient): Straight or Heterosexual Spiritual care concerns: No Agree to blood products: Yes Comments At the time of my signature, I reviewed and agree with the nursing past medical, surgical, social, and family history. There is no relevant family history pertinent to the patient complaint. Exam Narrative: GENERAL: This is a well-nourished, well-developed patient, in no apparent distress. HEAD: normocephalic, atraumatic. EYES: PERRL. Sclera clear/white. Vision is grossly intact. EARS: External
== END 2023-02-07 08:35 | disposition home or self-care (01) ==
PROVIDERS: Emergency Provider Nurse Practitioner Family; PCP Family Medicine
DX: L25.9 Unspecified contact dermatitis, unspecified cause (principal); E03.9 Hypothyroidism, unspecified; E78.2 Mixed hyperlipidemia; E55.9 Vitamin D deficiency, unspecified; F41.9 Anxiety disorder, unspecified
CPT/HCPCS: 99213; G0463

== ENCOUNTER 2023-05-11 08:14 | Emergency (ER) | payer OTHER, SELFPAY ==
[2023-05-11 08:18] VITALS: BP 133/89; PULSE 73; RESP 16; TEMP 36.8; O2SAT 96
--- NOTE | 2023-05-11 08:28 | ED.URI ---
HPI - URI/Sore Throat General Chief Complaint: Upper Respiratory Infection Stated Complaint: sore throat/headache History of Present Illness HPI Narrative: Patient presents with a sore throat and nasal congestion on loose dry hacky cough. No shortness of breath no chest pain no fever no body aches. No trouble swallowing no drooling. Related Data Home Medications Medication Instructions Recorded Confirmed omega-3 650 mg-dha 400 mg-epa 200 1 cap PO DAILY 03/23/21 05/11/23 mg-fish oil-vit D3 300 unit capsule ([place]-3 Plus Vitamin D3) calcium carbonate 600 mg calcium 600 mg PO .every other day 08/08/21 05/11/23 (1,500 mg) tablet (Calcium) rizatriptan 10 mg tablet 10 mg PO DAILY PRN Headache 02/07/23 05/11/23 cholecalciferol (vitamin D3) 10 10 mcg PO DAILY 05/11/23 05/11/23 mcg (400 unit) tablet (Vitamin D3) ferrous sulfate 325 mg (65 mg 325 mg PO DAILY 05/11/23 05/11/23 iron) tablet Allergies Allergy/AdvReac Type Severity Reaction Status Date / Time Penicillins Allergy Intermediate Rash Verified 05/11/23 08:24 Review of Systems Review of Systems: CONSTITUTIONAL: Denies chills, or sweats. Reports fever and generalized body aches EYES: Denies visual changes, redness, or discharge. ENT: Denies otalgia. Reports nasal congestion runny nose and sore throat CARDIOVASCULAR: Denies chest pain, palpitations, or edema. RESPIRATORY: Denies dyspnea. Reports occasional cough GASTROINTESTINAL: Denies abdominal pain, nausea, vomiting, or diarrhea. GENITOURINARY: Denies dysuria or hematuria. SKIN: Denies rash or itching. MUSCULOSKELETAL: Denies back pain, joint pain, or myalgia. Reports generalized body aches NEUROLOGIC: Denies headache, numbness, or weakness. PSYCHIATRIC: Denies anxiety or depression. [facility] Past Medical History Medical History Anxiety Hypothyroidism Lipoma of back Lumbar radiculopathy Mixed hyperlipidemia Nonintractable migraine SARAH (obstructive sleep apnea) Recurrent major depressive disorder, in partial remission Restless legs syndrome (RLS) Vitamin D deficiency Surgical History Surgical History History of thoracic spinal fusion Family History Family History Other Diabetes mellitus Family history of juvenile rheumatoid arthritis Social History Social History Smoking status: Never smoker Second hand tobacco smoke exposure: No Alcohol intake: current Alcohol use details: rare use Substance use: never Substance use type: does not use Lack of Transportation: No Lack of Food: Never True Current Housing: I Have Housing Concerned About Future Housing: No Difficulty Paying Gas/Electric Bills: No Difficulty Paying for Meds: No Currently Unemployed: No Education: High School Diploma/GED Difficulty w/ Childcare or Family Care: No Living arrangements: with family Additional living arrangements comments: lives with spouse Occupation/Education: occupation Gender identity (if verbalized by the patient): Female Sexual Orientation (if Verbalized by the Patient): Straight or Heterosexual Spiritual care concerns: No Agree to blood products: Yes Comments At time of signature, agree with nursing past medical, surgical, social and family history. There is no relevant family history pertinent to the presenting complaint Exam Narrative: CONSTITUTIONAL: Denies chills, or sweats. Reports fever and generalized body aches EYES: Denies visual changes, redness, or discharge. ENT: Denies otalgia. Reports nasal congestion runny nose and sore throat CARDIOVASCULAR: Denies chest pain, palpitations, or edema. RESPIRATORY: Denies dyspnea. Reports occasional cough GASTROINTESTINAL: Denies abdominal pain, nausea, vomiting, or diarrhea. [facility]
== END 2023-05-11 08:37 | disposition home or self-care (01) ==
PROVIDERS: Emergency Provider Nurse Practitioner Family; PCP Family Medicine
DX: J02.0 Streptococcal pharyngitis (principal); E03.9 Hypothyroidism, unspecified; E78.2 Mixed hyperlipidemia; Z79.899 Other long term (current) drug therapy
CPT/HCPCS: 87880; 99213; G0463

== ENCOUNTER → 2023-05-21 13:31 | Outpatient (CLI) | payer OTHER, SELFPAY ==
--- NOTE | ~2023-05-21 | MM_ITS ---
EXAMINATION: MM screening sherita BI w joshua HISTORY: Screening mammogram TECHNIQUE: Craniocaudal and mediolateral oblique 3-D tomosynthesis images were obtained and synthetic 2-D images were generated. Bilateral rotated lateral CC views. CAD analysis was submitted and interp reted. COMPARISON: 01/21/2021, 01/10/2017 bilateral screening mammogram examinations BREAST PARENCHYMAL COMPOSITION: There are scattered areas of fibroglandular density. FINDINGS: There is no evidence of suspicious mass, calcification, or architectural distortion to sugg est malignancy in either breast. There has been no suspicious interval change. IMPRESSION: 1. No mammographic evidence of malignancy. 2. Recommend routine screening mammography in one year. BI-RADS Category 1: Negative Reviewed, dictated and finalized at location A.
== END ==
PROVIDERS: PCP Family Medicine; Visit Provider Family Medicine
DX: Z12.31 Encounter for screening mammogram for malignant neoplasm of breast (principal)
CPT/HCPCS: 77063; 77067

== ENCOUNTER 2023-05-30 08:03 | Emergency (ER) | payer OTHER, SELFPAY ==
[2023-05-30 08:13] VITALS: BP 134/69; PULSE 72; RESP 16; TEMP 36.4; O2SAT 99
--- NOTE | 2023-05-30 08:30 | ED.URI ---
HPI - URI/Sore Throat General Chief Complaint: Upper Respiratory Infection Stated Complaint: Sore Throat Time Seen by Provider: 05/30/23 08:12 Source: patient and RN notes reviewed Mode of arrival: ambulatory Limitations: no limitations History of Present Illness HPI Narrative: Patient presents today complaining of sore throat, headache, fatigue, upset stomach x1 month. She was seen at [facility] few weeks ago and diagnosed with strep throat and placed on Keflex. States symptoms did not resolve with this antibiotic. She currently rates her pain 02/05 and has been taking allergy medicine, Aleve, and using Flonase with some relief. Related Data Home Medications Medication Instructions Recorded Confirmed omega-3 650 mg-dha 400 mg-epa 200 1 cap PO DAILY 03/23/21 05/30/23 mg-fish oil-vit D3 300 unit capsule ([place]-3 Plus Vitamin D3) calcium carbonate 600 mg calcium 600 mg PO .every other day 08/08/21 05/30/23 (1,500 mg) tablet (Calcium) rizatriptan 10 mg tablet 10 mg PO DAILY PRN Headache 02/07/23 05/30/23 cholecalciferol (vitamin D3) 10 10 mcg PO DAILY 05/11/23 05/30/23 mcg (400 unit) tablet (Vitamin D3) ferrous sulfate 325 mg (65 mg 325 mg PO DAILY 05/11/23 05/30/23 iron) tablet Allergies Allergy/AdvReac Type Severity Reaction Status Date / Time Penicillins Allergy Intermediate Rash Verified 05/30/23 08:16 Review of Systems Review of Systems: CONSTITUTIONAL: Denies body aches, fever, chills, or sweats.+ fatigue EYES: Denies visual changes, redness, or discharge. ENT: Denies rhinorrhea, congestion, or otalgia.+ sore throat CARDIOVASCULAR: Denies chest pain, palpitations, or edema. RESPIRATORY: Denies cough or dyspnea. GASTROINTESTINAL: Denies abdominal pain, nausea, vomiting, or diarrhea.+ upset stomach GENITOURINARY: Denies dysuria or hematuria. SKIN: Denies rash, itching, or wounds. MUSCULOSKELETAL: Denies back pain, joint pain, or myalgia. NEUROLOGIC: Denies numbness, tingling, or weakness.+ headache PSYCH: Denies depression or anxiety. [facility] Past Medical History Medical History Anxiety Hypothyroidism Lipoma of back Lumbar radiculopathy Mixed hyperlipidemia Nonintractable migraine SARAH (obstructive sleep apnea) Recurrent major depressive disorder, in partial remission Restless legs syndrome (RLS) Vitamin D deficiency Surgical History Surgical History History of thoracic spinal fusion Family History Family History Other Diabetes mellitus Family history of juvenile rheumatoid arthritis Social History Social History Smoking status: Never smoker Second hand tobacco smoke exposure: No Alcohol intake: current Alcohol use details: rare use Substance use: never Substance use type: does not use Lack of Transportation: No Lack of Food: Never True Current Housing: I Have Housing Concerned About Future Housing: No Difficulty Paying Gas/Electric Bills: No Difficulty Paying for Meds: No Currently Unemployed: No Education: High School Diploma/GED Difficulty w/ Childcare or Family Care: No Living arrangements: with family Additional living arrangements comments: lives with spouse Occupation/Education: occupation Gender identity (if verbalized by the patient): Female Sexual Orientation (if Verbalized by the Patient): Straight or Heterosexual Spiritual care concerns: No Agree to blood products: Yes Comments At time of signature, I have reviewed and agree with nursing past medical, surgical, social and family history unless otherwise noted. Please see nursing chart for further information. There is no relevant family history pertinent to the presenting complaint Exam Narrative: GENERAL: Well-appearing,
== END 2023-05-30 08:40 | disposition home or self-care (01) ==
PROVIDERS: Emergency Provider Nurse Practitioner; PCP Family Medicine
DX: J02.0 Streptococcal pharyngitis (principal); E03.9 Hypothyroidism, unspecified; M54.16 Radiculopathy, lumbar region; E78.2 Mixed hyperlipidemia; G25.81 Restless legs syndrome; E55.9 Vitamin D deficiency, unspecified; F33.8 Other recurrent depressive disorders; F41.9 Anxiety disorder, unspecified
CPT/HCPCS: 87880; 99213; G0463

== ENCOUNTER 2023-06-18 08:07 | Emergency (ER) | payer OTHER, SELFPAY ==
[2023-06-18 08:12] VITALS: BP 123/81; PULSE 70; RESP 20; TEMP 36.3; O2SAT 99
--- NOTE | 2023-06-18 08:16 | ED.URI ---
HPI - URI/Sore Throat General Chief Complaint: Upper Respiratory Infection Stated Complaint: Sore Throat/Headache Time Seen by Provider: 06/18/23 08:16 Source: patient Mode of arrival: ambulatory Limitations: no limitations History of Present Illness HPI Narrative: 62 yo F presents with c/o sore throat. Also has PND and intermittent sore throat. Had strep throat 2 wks ago and then strep throat 2 wks before that. All systems reviewed and negative except as noted above. Related Data Home Medications Medication Instructions Recorded Confirmed omega-3 650 mg-dha 400 mg-epa 200 1 cap PO DAILY 03/23/21 06/18/23 mg-fish oil-vit D3 300 unit capsule ([place]-3 Plus Vitamin D3) calcium carbonate 600 mg calcium 600 mg PO .every other day 08/08/21 06/18/23 (1,500 mg) tablet (Calcium) rizatriptan 10 mg tablet 10 mg PO DAILY PRN Headache 02/07/23 06/18/23 cholecalciferol (vitamin D3) 10 10 mcg PO DAILY 05/11/23 06/18/23 mcg (400 unit) tablet (Vitamin D3) ferrous sulfate 325 mg (65 mg 325 mg PO DAILY 05/11/23 06/18/23 iron) tablet Allergies Allergy/AdvReac Type Severity Reaction Status Date / Time Penicillins Allergy Intermediate Rash Verified 06/18/23 08:16 Review of Systems Review of Systems: CONSTITUTIONAL: Denies fever, chills, or sweats. EYES: Denies visual changes, redness, or discharge. ENT: reports intermittent rhinorrhea, sore throat, postnasal drainage. Denies congestion,, or otalgia. CARDIOVASCULAR: Denies chest pain, palpitations, or edema. RESPIRATORY: Denies cough or dyspnea. GASTROINTESTINAL: Denies abdominal pain, nausea, vomiting, or diarrhea. GENITOURINARY: Denies dysuria or hematuria. SKIN: Denies rash or itching. MUSCULOSKELETAL: Denies back pain, joint pain, or myalgia. NEUROLOGIC: Denies headache, numbness, or weakness. PSYCHIATRIC: Denies anxiety or depression. All other systems reviewed are negative, except as documented in HPI. [facility] Past Medical History Medical History Anxiety Hypothyroidism Lipoma of back Lumbar radiculopathy Mixed hyperlipidemia Nonintractable migraine SARAH (obstructive sleep apnea) Recurrent major depressive disorder, in partial remission Restless legs syndrome (RLS) Vitamin D deficiency Surgical History Surgical History History of thoracic spinal fusion Family History Family History Other Diabetes mellitus Family history of juvenile rheumatoid arthritis Social History Social History Smoking status: Never smoker Second hand tobacco smoke exposure: No Alcohol intake: current Alcohol use details: rare use Substance use: never Substance use type: does not use Lack of Transportation: No Lack of Food: Never True Current Housing: I Have Housing Concerned About Future Housing: No Difficulty Paying Gas/Electric Bills: No Difficulty Paying for Meds: No Currently Unemployed: No Education: High School Diploma/GED Difficulty w/ Childcare or Family Care: No Living arrangements: with family Additional living arrangements comments: lives with spouse Occupation/Education: occupation Gender identity (if verbalized by the patient): Female Sexual Orientation (if Verbalized by the Patient): Straight or Heterosexual Spiritual care concerns: No Agree to blood products: Yes Comments At time of signature, agree with nursing past medical, surgical, social and family history. There is no relevant family history pertinent to the presenting complaint. Exam Narrative: GENERAL: This is a well-nourished, well-developed patient, in no apparent distress. HEAD: normocephalic, atraumatic. EYES: PERRL. Sclera clear/white. Vision is grossly intact. EARS: External ears normal, auditory ca
== END 2023-06-18 08:40 | disposition home or self-care (01) ==
PROVIDERS: Emergency Provider Nurse Practitioner Family; PCP Family Medicine
DX: J02.9 Acute pharyngitis, unspecified (principal); R09.82 Postnasal drip; E03.9 Hypothyroidism, unspecified; Z79.899 Other long term (current) drug therapy
CPT/HCPCS: 87081; 87880; 99213; G0463

== ENCOUNTER 2023-06-25 16:30 | Emergency (ER) | payer OTHER, SELFPAY ==
[2023-06-25 16:35] VITALS: BP 134/73; PULSE 73; RESP 20; TEMP 36.7; O2SAT 96
--- NOTE | 2023-06-25 16:57 | ED.URI ---
HPI - URI/Sore Throat General Chief Complaint: Upper Respiratory Infection Stated Complaint: Sore Throat Time Seen by Provider: 06/25/23 17:14 Source: patient and RN notes reviewed Mode of arrival: ambulatory Limitations: no limitations History of Present Illness HPI Narrative: 62-year-old female presents with concern sore throat, painful swallowing, swollen glands, ear pain, fatigue, headache. She reports she she was seen for this 7 days ago and at that time she had a negative strep test. Her culture was negative. She reports since the middle of April she has had to strep infections that were treated with antibiotics and she never fully felt better. She reports she has been taking allergy medicine without relief. MD elicited complaint: sore throat Related Data Home Medications Medication Instructions Recorded Confirmed omega-3 650 mg-dha 400 mg-epa 200 1 cap PO DAILY 03/23/21 06/25/23 mg-fish oil-vit D3 300 unit capsule ([place]-3 Plus Vitamin D3) calcium carbonate 600 mg calcium 600 mg PO .every other day 08/08/21 06/25/23 (1,500 mg) tablet (Calcium) rizatriptan 10 mg tablet 10 mg PO DAILY PRN Headache 02/07/23 06/25/23 cholecalciferol (vitamin D3) 10 10 mcg PO DAILY 05/11/23 06/25/23 mcg (400 unit) tablet (Vitamin D3) ferrous sulfate 325 mg (65 mg 325 mg PO DAILY 05/11/23 06/25/23 iron) tablet Allergies Allergy/AdvReac Type Severity Reaction Status Date / Time Penicillins Allergy Intermediate Rash Verified 06/25/23 16:43 Review of Systems Review of Systems: CONSTITUTIONAL: Reports malaise, fatigue EYES: Denies visual changes, redness, or discharge. ENT: Denies rhinorrhea, congestion, sinus pain. Reports right side otalgia and sore throat. CARDIOVASCULAR: Denies chest pain, palpitations, or edema. RESPIRATORY: Denies cough. Denies dyspnea. GASTROINTESTINAL: Denies abdominal pain, nausea, vomiting, diarrhea SKIN: Denies rash or itching. MUSCULOSKELETAL: Reports myalgia. NEUROLOGIC: Reports headache. All systems reviewed & are unremarkable except as noted in HPI and below PMFSH Past Medical History Medical History Anxiety Hypothyroidism Lipoma of back Lumbar radiculopathy Mixed hyperlipidemia Nonintractable migraine SARAH (obstructive sleep apnea) Recurrent major depressive disorder, in partial remission Restless legs syndrome (RLS) Vitamin D deficiency Surgical History Surgical History History of thoracic spinal fusion Family History Family History Other Diabetes mellitus Family history of juvenile rheumatoid arthritis Social History Social History Smoking status: Never smoker Second hand tobacco smoke exposure: No Alcohol intake: current Alcohol use details: rare use Substance use: never Substance use type: does not use Lack of Transportation: No Lack of Food: Never True Current Housing: I Have Housing Concerned About Future Housing: No Difficulty Paying Gas/Electric Bills: No Difficulty Paying for Meds: No Currently Unemployed: No Education: High School Diploma/GED Difficulty w/ Childcare or Family Care: No Living arrangements: with family Additional living arrangements comments: lives with spouse Occupation/Education: occupation Gender identity (if verbalized by the patient): Female Sexual Orientation (if Verbalized by the Patient): Straight or Heterosexual Spiritual care concerns: No Agree to blood products: Yes Comments At time of signature, agree with nursing past medical, surgical, social and family history. There is no relevant family history pertinent to the presenting complaint Exam Narrative: GENERAL: Well-appearing, well-nourished, and in no acute distress. HEAD: Normocep
== END 2023-06-25 17:50 | disposition home or self-care (01) ==
PROVIDERS: Emergency Provider Nurse Practitioner; PCP Family Medicine
DX: J02.9 Acute pharyngitis, unspecified (principal); E03.9 Hypothyroidism, unspecified; E78.2 Mixed hyperlipidemia; Z79.899 Other long term (current) drug therapy
CPT/HCPCS: 36416; 86308; 87081; 87880; 99213; G0463

== ENCOUNTER → 2023-07-09 14:03 | Outpatient (CLI) | payer OTHER, SELFPAY ==
--- NOTE | ~2023-07-09 | US_ITS ---
EXAMINATION: US soft tissue UE RT DATE: 07/09/2023 14:25 INDICATION: Right hand mass at the palmar side near the fifth digit. TECHNIQUE: Multiple grayscale and Doppler ultrasound images of the right hand were obtained. COMPARISON: None FINDINGS: In the patient's area of concern, there is a 9 x 6 x 6 mm ganglion cyst. IMPRESSION: 1. 9 mm ganglion cyst in the patient's area of concern in right hand. Reviewed, dictated and finalized at location A. HYSICAL COMPUTER
== END ==
PROVIDERS: PCP Family Medicine; Visit Provider Plastic Surgery
DX: M67.441 Ganglion, right hand (principal)
CPT/HCPCS: 76882

== ENCOUNTER 2023-07-27 09:24 | Emergency (ER) | payer OTHER, SELFPAY ==
[2023-07-27 09:28] VITALS: BP 137/82; PULSE 74; RESP 16; TEMP 36.6; O2SAT 96
--- NOTE | 2023-07-27 09:30 | ED.URI ---
HPI - URI/Sore Throat General Chief Complaint: Upper Respiratory Infection Stated Complaint: ear/throat/headache Time Seen by Provider: 07/27/23 09:56 Source: patient and RN notes reviewed Mode of arrival: ambulatory Limitations: no limitations History of Present Illness HPI Narrative: 62-year-old female presents concern for 3 day history of something stuck in her throat, sore throat. She reports right ear itching. She reports her granddaughter had strep throat recently. She reports slight headache and feeling ?woozy?. She denies fever. Reports chills. Reports she has been using gargles without relief MD elicited complaint: sore throat Related Data Home Medications Medication Instructions Recorded Confirmed omega-3 650 mg-dha 400 mg-epa 200 1 cap PO DAILY 03/23/21 07/04/23 mg-fish oil-vit D3 300 unit capsule ([place]-3 Plus Vitamin D3) calcium carbonate 600 mg calcium 600 mg PO .every other day 08/08/21 07/04/23 (1,500 mg) tablet (Calcium) rizatriptan 10 mg tablet 10 mg PO DAILY PRN Headache 02/07/23 07/04/23 cholecalciferol (vitamin D3) 10 10 mcg PO DAILY 05/11/23 07/04/23 mcg (400 unit) tablet (Vitamin D3) ferrous sulfate 325 mg (65 mg 325 mg PO DAILY 05/11/23 07/04/23 iron) tablet Allergies Allergy/AdvReac Type Severity Reaction Status Date / Time Penicillins Allergy Intermediate Rash Verified 07/19/23 08:03 Review of Systems Review of Systems: CONSTITUTIONAL: Reports malaise, chills EYES: Denies visual changes, redness, or discharge. ENT: Denies rhinorrhea, congestion, sinus pain. Reports otalgia and sore throat. CARDIOVASCULAR: Denies chest pain, palpitations, or edema. RESPIRATORY: Denies cough. Denies dyspnea. GASTROINTESTINAL: Denies abdominal pain, nausea, vomiting, diarrhea SKIN: Denies rash or itching. MUSCULOSKELETAL: Denies myalgia. NEUROLOGIC: Reports headache. All systems reviewed & are unremarkable except as noted in HPI and below PMFSH Past Medical History Medical History Anxiety Hypothyroidism Lipoma of back Lumbar radiculopathy Mixed hyperlipidemia Nonintractable migraine SARAH (obstructive sleep apnea) Recurrent major depressive disorder, in partial remission Restless legs syndrome (RLS) Vitamin D deficiency Surgical History Surgical History History of thoracic spinal fusion Family History Family History Other Diabetes mellitus Family history of juvenile rheumatoid arthritis Social History Social History Smoking status: Never smoker Second hand tobacco smoke exposure: No Alcohol intake: current Alcohol use details: rare use Substance use: never Substance use type: does not use Lack of Transportation: No Lack of Food: Never True Current Housing: I Have Housing Concerned About Future Housing: No Difficulty Paying Gas/Electric Bills: No Difficulty Paying for Meds: No Currently Unemployed: No Education: High School Diploma/GED Difficulty w/ Childcare or Family Care: No Living arrangements: with family Additional living arrangements comments: lives with spouse Occupation/Education: occupation Gender identity (if verbalized by the patient): Female Sexual Orientation (if Verbalized by the Patient): Straight or Heterosexual Spiritual care concerns: No Agree to blood products: Yes Comments At time of signature, agree with nursing past medical, surgical, social and family history. There is no relevant family history pertinent to the presenting complaint Exam Narrative: GENERAL: Well-appearing, well-nourished, and in no acute distress. HEAD: Normocephalic EYES: PERRLA, conjunctivae clear ENT: Nares clear. Mucous membranes moist. TM pearly ayon with dull light ref
== END 2023-07-27 10:09 | disposition home or self-care (01) ==
PROVIDERS: Emergency Provider Nurse Practitioner; PCP Family Medicine
DX: J03.90 Acute tonsillitis, unspecified (principal); E03.9 Hypothyroidism, unspecified; M54.16 Radiculopathy, lumbar region; E78.2 Mixed hyperlipidemia; G25.81 Restless legs syndrome; E55.9 Vitamin D deficiency, unspecified
CPT/HCPCS: 87081; 87880; 99213; G0463

== ENCOUNTER 2023-10-21 15:30 | Emergency (ER) | payer MEDICARE, SELFPAY ==
[2023-10-21 15:38] VITALS: BP 138/75; PULSE 85; RESP 18; TEMP 36.7; O2SAT 96
--- NOTE | 2023-10-21 15:47 | ED.URI ---
HPI - URI/Sore Throat General Chief Complaint: Upper Respiratory Infection Stated Complaint: throat History of Present Illness HPI Narrative: Patient presents with a sore throat. No trouble swallowing no drooling. Does have nasal congestion but denies any cough for shortness of breath. Patient is not taking anything [id number] for her symptoms. Related Data Home Medications Medication Instructions Recorded Confirmed omega-3 650 mg-dha 400 mg-epa 200 1 cap PO DAILY 03/23/21 08/28/23 mg-fish oil-vit D3 300 unit capsule ([place]-3 Plus Vitamin D3) calcium carbonate 600 mg calcium 600 mg PO .every other day 08/08/21 08/28/23 (1,500 mg) tablet (Calcium) rizatriptan 10 mg tablet 10 mg PO DAILY PRN Headache 02/07/23 08/28/23 cholecalciferol (vitamin D3) 10 10 mcg PO DAILY 05/11/23 08/28/23 mcg (400 unit) tablet (Vitamin D3) ferrous sulfate 325 mg (65 mg 325 mg PO DAILY 05/11/23 08/28/23 iron) tablet Allergies Allergy/AdvReac Type Severity Reaction Status Date / Time Penicillins Allergy Intermediate Rash Verified 08/28/23 08:25 Review of Systems Review of Systems: CONSTITUTIONAL: Denies chills, or sweats. Reports fever and generalized body aches EYES: Denies visual changes, redness, or discharge. ENT: Denies otalgia. Reports nasal congestion runny nose and sore throat CARDIOVASCULAR: Denies chest pain, palpitations, or edema. RESPIRATORY: Denies dyspnea. Reports occasional cough GASTROINTESTINAL: Denies abdominal pain, nausea, vomiting, or diarrhea. GENITOURINARY: Denies dysuria or hematuria. SKIN: Denies rash or itching. MUSCULOSKELETAL: Denies back pain, joint pain, or myalgia. Reports generalized body aches NEUROLOGIC: Denies headache, numbness, or weakness. PSYCHIATRIC: Denies anxiety or depression. [facility] Past Medical History Medical History Anxiety Hypothyroidism Lipoma of back Lumbar radiculopathy Mixed hyperlipidemia Nonintractable migraine SARAH (obstructive sleep apnea) Recurrent major depressive disorder, in partial remission Restless legs syndrome (RLS) Vitamin D deficiency Surgical History Surgical History History of thoracic spinal fusion Family History Family History Other Diabetes mellitus Family history of juvenile rheumatoid arthritis Social History Social History Smoking status: Never smoker Second hand tobacco smoke exposure: No Alcohol intake: current Alcohol use details: rare use Substance use: never Substance use type: does not use Lack of Transportation: No Lack of Food: Never True Current Housing: I Have Housing Concerned About Future Housing: No Difficulty Paying Gas/Electric Bills: No Difficulty Paying for Meds: No Currently Unemployed: No Education: High School Diploma/GED Difficulty w/ Childcare or Family Care: No Living arrangements: with family Additional living arrangements comments: lives with spouse Occupation/Education: occupation Gender identity (if verbalized by the patient): Female Sexual Orientation (if Verbalized by the Patient): Straight or Heterosexual Spiritual care concerns: No Agree to blood products: Yes Comments At time of signature, agree with nursing past medical, surgical, social and family history. There is no relevant family history pertinent to the presenting complaint Exam Narrative: The patient is a well-developed, well-nourished in no acute distress. SKIN: Skin is warm and dry without erythema, swelling or exudate. There is good turgor. No tenting. HEAD: Atraumatic. Normocephalic. No temporal or scalp tenderness. EYES: Moist and bright. Sclera and conjunctivae normal. No discharge. PERRLA. Extraocular motions intact. Gross vi
== END 2023-10-21 15:59 | disposition home or self-care (01) ==
PROVIDERS: Emergency Provider Nurse Practitioner Family; PCP Family Medicine
DX: J02.9 Acute pharyngitis, unspecified (principal); J06.9 Acute upper respiratory infection, unspecified; E03.9 Hypothyroidism, unspecified; E78.2 Mixed hyperlipidemia; G25.81 Restless legs syndrome; E55.9 Vitamin D deficiency, unspecified
CPT/HCPCS: 87081; 87880; 99213; G0463

== ENCOUNTER 2024-06-08 10:39 | Emergency (ER) | payer MEDICARE, SELFPAY ==
[2024-06-08 11:02] VITALS: BP 177/89; PULSE 76; RESP 18; TEMP 36.7; O2SAT 99
[2024-06-08] MEDS: ONDANSETRON HCL ODT 4 MG TABLET PO (11:21)
[2024-06-08] MEDS: KETOROLAC (*BKC) 60 MG/2 ML VIAL IM (11:21)
--- NOTE | 2024-06-08 11:34 | ED.GENADULT ---
HPI - General Adult General Chief complaint: Headache Stated complaint: Headache Source: patient Mode of arrival: ambulatory Limitations: no limitations History of Present Illness HPI narrative: Patient presents for evaluation of migraine headache since 8:00 a.m. this morning. Patient indicates she woke from sleep with her symptoms. She has a history of migraines and this feels similar. Pain is in the bilateral temporal regions with circumferential radiation into the occiput. She rates her pain 10/10 in severity and describes it as throbbing. She has associated photophobia and nausea. She tried taking two doses of rizatriptan without much improvement. In the past toradol has helped. Related Data Allergies Allergy/AdvReac Type Severity Reaction Status Date / Time Penicillins Allergy Intermediate Rash Verified 06/08/24 10:49 Review of Systems Review of Systems: CONSTITUTIONAL: Denies fever, chills, or sweats. EYES: Reports photophobia. Denies visual changes, redness, or discharge. ENT: Denies rhinorrhea, congestion, sore throat, or otalgia. CARDIOVASCULAR: Denies chest pain, palpitations, or edema. RESPIRATORY: Denies cough or dyspnea. GASTROINTESTINAL: Reports nausea. Denies abdominal pain, vomiting, or diarrhea. GENITOURINARY: Denies dysuria or hematuria. SKIN: Denies rash or itching. MUSCULOSKELETAL: Denies back pain, joint pain, or myalgia. NEUROLOGIC: Reports headache. Denies numbness, dizziness, or weakness. PSYCHIATRIC: Denies anxiety or depression. [facility] Past Medical History Medical History Anxiety Headache Hypothyroidism Lipoma of back Lumbar radiculopathy Mixed hyperlipidemia Nonintractable migraine SARAH (obstructive sleep apnea) Recurrent major depressive disorder, in partial remission Restless legs syndrome (RLS) Vitamin D deficiency Surgical History Surgical History History of thoracic spinal fusion Family History Family History Other Diabetes mellitus Family history of juvenile rheumatoid arthritis Social History Social History Smoking status: Never smoker Second hand tobacco smoke exposure: No Alcohol intake: current Alcohol use details: rare use Substance use: never Substance use type: does not use Lack of Transportation: No Lack of Food: Never True Current Housing: I Have Housing Concerned About Future Housing: No Difficulty Paying Gas/Electric Bills: No Difficulty Paying for Meds: No Currently Unemployed: No Education: High School Diploma/GED Difficulty w/ Childcare or Family Care: No Living arrangements: with family Additional living arrangements comments: lives with spouse Occupation/Education: occupation Gender identity (if verbalized by the patient): Female Sexual Orientation (if Verbalized by the Patient): Straight or Heterosexual Spiritual care concerns: No Agree to blood products: Yes Exam Narrative: GENERAL: Sitting in room with lights off. Well-appearing, well-nourished, and in no acute distress. HEAD: Normocephalic, atraumatic. EYES: PERRLA and EOMI. ENT: Nares clear, no rhinorrhea or epistaxis. Mucous membranes moist. Oropharynx without tonsillar hypertrophy exudate or other lesions. Bilateral TMs pearly ayon nonbulging NECK: Supple. No adenopathy or masses. No carotid bruits or JVD CHEST: Clear to auscultation. No respiratory distress. No wheezes rales or rhonchi HEART: Regular rate and rhythm. No murmur heard. Normal peripheral pulses. ABDOMEN: Soft, nontender, nondistended, normal active bowel sounds. EXTREMITIES: Normal range of motion. No edema. SKIN: Warm, dry, no rash. NEURO: Normal finger to nose exam. Able to perform rapid alternative movements without difficulty. No focal deficits. Alert and oriented x3. PSYCH: Normal mood and affect. Course Course Emergency Course: This is a 63-year-old female who presented for evaluation of a migraine that is consistent with her normal migraine pattern. She was given Toradol and Zofran. Symptoms were markedly improved. She felt well enough to be discharge. She has had Fioricet in the past will discharge her with that and some Zofran. Increase hydration. Follow up with primary provider. Go to the ER for worsening symptoms. Patient is in agreement with plan of care. Level of Care: Express Care Visit Vital Signs Vital signs: Vital Signs Temperature 36.7 C 06/08/24 11:02 Pulse Rate 76 06/08/24 11:02 Respiratory Rate 18 06/08/24 11:02 Blood Pressure 177/89 H 06/08/24 11:02 Pulse Oximetry 99 06/08/24 11:02 Oxygen Delivery Room Air 06/08/24 11:02 Temperature 36.7 C 06/08/24 11:02 Pulse Rate 76 06/08/24 11:02 Respiratory Rate 18 06/08/24 11:02 Blood Pressure 177/89 H 06/08/24 11:02 Pulse Oximetry 99 06/08/24 11:02 Oxygen Delivery Room Air 06/08/24 11:02 Medical Decision Making Vital Signs Vital Signs: Vital Signs Temperature 36.7 C 06/08/24 11:02 Pulse Rate 76 06/08/24 11:02 Respiratory Rate 18 06/08/24 11:02 Blood Pressure 177/89 H 06/08/24 11:02 Pulse Oximetry 99 06/08/24 11:02 Oxygen Delivery Room Air 06/08/24 11:02 Temperature 36.7 C 06/08/24 11:02 Pulse Rate 76 06/08/24 11:02 Respiratory Rate 18 06/08/24 11:02 Blood Pressure 177/89 H 06/08/24 11:02 Pulse Oximetry 99 06/08/24 11:02 Oxygen Delivery Room Air 06/08/24 11:02 Discharge Plan Discharge Clinical Impression: Migraine Patient Disposition: Home, Self-Care Condition: Stable Instructions: Antibiotic Form, Migraine Headache (ED) Patient Language: [place] Prescriptions: New [id number] [Fioricet] 50-300-40 mg capsule 1 - 2 cap PO Q8H PRN (Reason: pain) Qty: 15 0RF ondansetron 4 mg tablet,disintegrating 4 mg PO Q8H PRN (Reason: nausea and vomiting) Qty: 15 0RF No Action levothyroxine 50 mcg tablet 50 mcg PO DAILY Qty: 90 2RF simvastatin 40 mg tablet 40 mg PO DAILY Qty: 90 1RF rizatriptan 10 mg tablet,disintegrating See Rx Instructions PO .COMPLEX Qty: 9 12RF Rx Instructions: take 1 tab at onset of headache; if no relief may repeat 1 tab after at least 2 hrs; max = 3 tabs/24 hr PO tramadol 50 mg tablet 50 mg PO Q6H PRN (Reason: pain) Qty: 120 0RF citalopram 40 mg tablet 40 mg PO DAILY Qty: 30 5RF Follow-up/Referrals: Sandra Saldivar MD [Primary Care Provider] - Time of Disposition: 12:13
== END 2024-06-08 12:15 | disposition home or self-care (01) ==
PROVIDERS: Emergency Provider Nurse Practitioner; PCP Family Medicine
DX: G43.909 Migraine, unspecified, not intractable, without status migrainosus (principal); E03.9 Hypothyroidism, unspecified; E78.2 Mixed hyperlipidemia; G25.81 Restless legs syndrome; E55.9 Vitamin D deficiency, unspecified; F41.9 Anxiety disorder, unspecified; F33.8 Other recurrent depressive disorders
CPT/HCPCS: 96372; 99213; A9270; G0463; J1885

== ENCOUNTER 2024-07-04 08:01 | Emergency (ER) | payer MEDICARE, SELFPAY ==
[2024-07-04 08:12] VITALS: BP 119/64; PULSE 78; RESP 16; TEMP 36.8; O2SAT 97
[2024-07-04 08:14] VITALS: BP 119/64; PULSE 78; RESP 16; TEMP 36.8; O2SAT 97
--- NOTE | 2024-07-04 08:21 | ED_ITS ---
HPI - URI/Sore Throat General Chief Complaint: Upper Respiratory Infection Stated Complaint: throat Time Seen by Provider: 07/04/24 08:25 Source: patient and RN notes reviewed Mode of arrival: ambulatory Limitations: no limitations History of Present Illness HPI Narrative: 63-year-old female presents with concern for sore throat and headache that started last night. She reports runny nose and stuffy nose, occasional cough. She reports chills and sweats but has not taken her temperature. She works at a grade school. Reports she took ibuprofen. MD elicited complaint: sore throat Related Data Allergies Allergy/AdvReac Type Severity Reaction Status Date / Time Penicillins Allergy Intermediate Rash Verified 07/04/24 08:13 Review of Systems Review of Systems: CONSTITUTIONAL: Reports malaise, chills, sweats EYES: Denies visual changes, redness, or discharge. ENT: Reports rhinorrhea, congestion, and sore throat. CARDIOVASCULAR: Denies chest pain, palpitations, or edema. RESPIRATORY: Reports occasional cough. Denies dyspnea. GASTROINTESTINAL: Denies abdominal pain, nausea, vomiting, diarrhea SKIN: Denies rash or itching. MUSCULOSKELETAL: Denies myalgia. NEUROLOGIC: Reports headache. All systems reviewed & are unremarkable except as noted in HPI and below PMFSH Past Medical History Medical History Anxiety Headache Hypothyroidism Lipoma of back Lumbar radiculopathy Mixed hyperlipidemia Nonintractable migraine SARAH (obstructive sleep apnea) Recurrent major depressive disorder, in partial remission Restless legs syndrome (RLS) Vitamin D deficiency Surgical History Surgical History History of thoracic spinal fusion Family History Family History Other Diabetes mellitus Family history of juvenile rheumatoid arthritis Social History Social History Smoking status: Never smoker Second hand tobacco smoke exposure: No Alcohol intake: current Alcohol use details: rare use Substance use: never Substance use type: does not use Lack of Transportation: No Lack of Food: Never True Current Housing: I Have Housing Concerned About Future Housing: No Difficulty Paying Gas/Electric Bills: No Difficulty Paying for Meds: No Currently Unemployed: No Education: High School Diploma/GED Difficulty w/ Childcare or Family Care: No Living arrangements: with family Additional living arrangements comments: lives with spouse Occupation/Education: occupation Gender identity (if verbalized by the patient): Female Sexual Orientation (if Verbalized by the Patient): Straight or Heterosexual Spiritual care concerns: No Agree to blood products: Yes Comments At time of signature, agree with nursing past medical, surgical, social and family history. There is no relevant family history pertinent to the presenting complaint Exam Narrative: GENERAL: Well-appearing, well-nourished, and in no acute distress. HEAD: Normocephalic EYES: PERRLA, conjunctivae clear ENT: Nares clear. Mucous membranes moist. TM pearly ayon with sharp light reflex bilaterally; no tragal tenderness. Oropharynx not erythematous without lesions. Tonsils not enlarged and without exudate, no drooling, no hoarseness, no trismus, uvula midline. NECK: Supple. No lymphadenopathy CHEST: Clear to auscultation, breath sounds equal. No wheezing, rhonchi, rales, or stridor. No respiratory distress, speaks in full sentences. HEART: Regular rate and rhythm. No murmur heard. SKIN: Warm, dry, no rash. NEURO: Alert and oriented x3. PSYCH: Normal mood and affect Course Course Emergency Course: Patient is aware of diagnosis, understands and agrees to treatment plan. Anticipatory guidance given. Patient agrees to follow-up as directed and is aware of reasons to seek care at the emergency department. Portions of this record may have been created with voice recognition software Level of Care: Express Care Visit Vital Signs Vital signs: Vital Signs Temperature 98.2 F 07/04/24 08:12 Pulse Rate 78 07/04/24 08:12 Respiratory Rate 16 07/04/24 08:12 Blood Pressure 119/64 07/04/24 08:12 Pulse Oximetry 97 07/04/24 08:12 Oxygen Delivery Room Air 07/04/24 08:12 Temperature 98.2 F 07/04/24 08:14 Pulse Rate 78 07/04/24 08:14 Respiratory Rate 16 07/04/24 08:14 Blood Pressure 119/64 07/04/24 08:14 Pulse Oximetry 97 07/04/24 08:14 Oxygen Delivery Room Air 07/04/24 08:14 Reviewed. MDM - URI/Sore Throat MDM Narrative Medical decision making narrative: Differential diagnosis considered: Simons virus, strep pharyngitis, allergic rhinitis, upper respiratory tract infection, sinusitis, rhinosinusitis, nasopharyngitis. viral pharyngitis, otitis media, otitis externa, pneumonia, bronchitis, viral cough syndrome, viral syndrome, and influenza. Exam findings show no acute concerns or changes; patient is non-toxic appearing and is in no distress. Patient is appropriate for outpatient treatment and follow-up. Lab Data Attestation: I reviewed the patient's lab results. Critical Care Time Critical Care Time Critical Care Time: No Discharge Plan Discharge Clinical Impression: Upper respiratory infection Patient Disposition: Home, Self-Care Condition: Stable Instructions: Upper Respiratory Infection (ED) Additional Instructions: Your rapid COVID and flu tests are negative Your rapid strep swab was negative today at [facility]. A throat culture will be sent to the laboratory for further testing. If the test is positive, you will receive a phone call within 48 hours and an appropriate antibiotic will be initiated at that time. Your symptoms are likely due to a viral illness, which is not treated with antibiotics. Viral symptoms can be present for up to a few weeks. -Alternate Tylenol and Motrin per package directions for fever or pain. -Antihistamine medication such as Benadryl at night and Zyrtec during the day can help improve symptoms. -Eat and drink things that are easy to swallow, like tea or soup, or popsicles to suck on. -Oral rinses such as: Salt water gargles and/or may use topical anesthetic (eg. Chloraseptic spray) or lozenges to relieve dryness or throat pain). -Frequent hand washing or hand stummel selector is one of the best ways to prevent spread of infection. -Follow up with primary care provider in 2-3 days if condition is not improving; or seek ER visit if you have trouble breathing, cannot drink enough fluids, have muffled voice, difficulty opening your mouth, or severe swelling. Prescriptions: New pseudoephedrine HCl [12 Hour Decongestant] 120 mg tablet extended release 120 mg PO Q12H PRN (Reason: nasal congestion) Qty: 20 0RF dextromethorphan-guaifenesin [Mucinex DM] 60-1,200 mg tablet extended release 12 hr 1 tablet PO Q12H Qty: 12 0RF No Action ondansetron 4 mg tablet,disintegrating 4 mg PO Q8H PRN (Reason: nausea and vomiting) Qty: 15 0RF levothyroxine 50 mcg tablet 50 mcg PO DAILY Qty: 90 2RF rizatriptan 10 mg tablet,disintegrating See Rx Instructions PO .COMPLEX Qty: 9 12RF Rx Instructions: take 1 tab at onset of headache; if no relief may repeat 1 tab after at least 2 hrs; max = 3 tabs/24 hr PO tramadol 50 mg tablet 50 mg PO Q6H PRN (Reason: pain) Qty: 120 0RF citalopram 40 mg tablet 40 mg PO DAILY Qty: 30 5RF simvastatin 40 mg tablet 40 mg PO DAILY Qty: 90 1RF Follow-up/Referrals: Sandra Saldivar MD [Primary Care Provider] - Stand Alone Forms: Work/School Release IP Time of Disposition: 08:59
[2024-07-04 08:26] LABS: EDSTREPNEGPOS1 Negative (Negative)
[2024-07-04 08:55] LABS: EDCOVIDSCREEN Negative (Negative); EDINFLUASCREEN Negative (Negative); EDINFLUBSCREEN Negative (Negative)
== END 2024-07-04 09:03 | disposition home or self-care (01) ==
PROVIDERS: Emergency Provider Nurse Practitioner; PCP Family Medicine
DX: J06.9 Acute upper respiratory infection, unspecified (principal); Z20.822 Contact with and (suspected) exposure to COVID-19; E03.9 Hypothyroidism, unspecified; E78.2 Mixed hyperlipidemia; G25.81 Restless legs syndrome
CPT/HCPCS: 87081; 87426; 87804; 87880; 99213; G0463

== ENCOUNTER 2024-07-28 15:16 | Outpatient (CLI) | payer MEDICARE, SELFPAY ==
--- NOTE | ~2024-07-28 | MM_ITS ---
EXAMINATION: MM screening sherita BI w joshua HISTORY: Screening mammogram TECHNIQUE: Craniocaudal and mediolateral oblique 3-D tomosynthesis images were obtained and synthetic 2-D images were generated. CAD analysis was submitted and interpreted. COMPARISON: 05/21/2023, 01/21/2021 BREAST PARENCHYMAL COMPOSITION:Not Dense. The breasts are almost entirely fatty FINDINGS: No suspicious mass, calcification, or architectural distortion are identified in either dillon ast to suggest malignancy. There has been no suspicious interval change. IMPRESSION: No mammographic evidence of malignancy. Recommend routine screening mammography in one year. BI-RADS Category 1: Negative Reviewed, dictated and finalized at location . CUTTER
== END 2024-07-28 15:17 | disposition home or self-care (01) ==
LOC: MICIMG 15:16
PROVIDERS: PCP Family Medicine; Visit Provider Family Medicine
DX: Z12.31 Encounter for screening mammogram for malignant neoplasm of breast (principal)
CPT/HCPCS: 77063; 77067

== ENCOUNTER 2025-01-18 08:04 | Emergency (ER) | payer MEDICARE, SELFPAY ==
[2025-01-18 08:10] VITALS: BP 107/64; PULSE 66; RESP 16; TEMP 36.2; O2SAT 96
--- NOTE | 2025-01-18 08:12 | ED.WOUNDLAC ---
HPI - Wound/Laceration General Chief Complaint: Skin/Abscess/Foreign Body Stated Complaint: Rash Time Seen by Provider: 01/18/25 08:12 Source: patient Mode of arrival: ambulatory Limitations: no limitations History of Present Illness HPI narrative: 64 y/o female presented for c/o rash to face. Onset 4 days. Endorses the rash is itchy, raised and red. Applying Ivarest to the sites. Rash started after mowing the day prior. Denies lip, tongue, or throat swelling, shortness of breath or wheezing. Denies changes to soap, detergent, lotion, or any other exposures. No one else in the house or any contacts with similar symptoms. Related Data Allergies Allergy/AdvReac Type Severity Reaction Status Date / Time Penicillins Allergy Intermediate Rash Verified 01/18/25 08:21 Review of Systems Review of Systems: CONSTITUTIONAL: Denies body aches, fever, chills, or sweats. EYES: Denies visual changes, redness, or discharge. ENT: Denies rhinorrhea, congestion CARDIOVASCULAR: Denies chest pain, palpitations, or edema. RESPIRATORY: Denies cough or dyspnea. GASTROINTESTINAL: Denies abdominal pain, nausea, vomiting, or diarrhea. SKIN: reports rash MUSCULOSKELETAL: Denies back pain, joint pain, or myalgia. NEUROLOGIC: Denies headache, numbness, tingling, or weakness. [facility] Past Medical History Medical History Headache Lipoma of back Restless legs syndrome (RLS) Anxiety Hypothyroidism Lumbar radiculopathy Mixed hyperlipidemia Nonintractable migraine SARAH (obstructive sleep apnea) Recurrent major depressive disorder, in partial remission Vitamin D deficiency Surgical History Surgical History History of thoracic spinal fusion Family History Family History Other Diabetes mellitus Family history of juvenile rheumatoid arthritis Social History Social History Smoking status: Never smoker Second hand tobacco smoke exposure: No Alcohol intake: current Alcohol use details: rare use Substance use: never Substance use type: does not use Lack of Transportation: No Lack of Food: Never True Current Housing: I Have Housing Concerned About Future Housing: No Difficulty Paying Gas/Electric Bills: No Difficulty Paying for Meds: No Currently Unemployed: No Education: High School Diploma/GED Difficulty w/ Childcare or Family Care: No Living arrangements: with family Additional living arrangements comments: lives with spouse Occupation/Education: occupation Gender identity (if verbalized by the patient): Female Sexual Orientation (if Verbalized by the Patient): Straight or Heterosexual Spiritual care concerns: No Agree to blood products: Yes Comments At time of signature, I have reviewed and agree with nursing past medical, surgical, social and family history unless otherwise noted. Please see nursing chart for further information. There is no relevant family history pertinent to the presenting complaint Exam Narrative: GENERAL: Well-appearing HEAD: Normocephalic, atraumatic. EYES: conjunctivae clear, and EOMI. No swelling. ENT: Mucous membranes moist. Oropharynx without edema, erythema or lesions. NECK: Supple. No lymphadenopathy CHEST: Clear to auscultation. HEART: Regular rate and rhythm. SKIN: Warm, dry. Scattered raised erythematous patches to face and neck, and left ear c/w contact dermatitis. Nontender, no drainage. NEURO: Alert and oriented x3. Course Course Emergency Course: Patient is aware of diagnosis, understands and agrees to treatment plan. Anticipatory guidance given. Patient agrees to follow-up as directed and is aware of reasons to seek care at the emergency department. Portions of this record may have been created with voice recognition software Level of Care: Express Care Visit Vital Signs Vital signs: Vital Signs Temperature 97.2 F L 01/18/25 08:10 Pulse Rate 66 01/18/25 08:10 Respiratory Rate 16 01/18/25 08:10 Blood Pressure 107/64 01/18/25 08:10 Pulse Oximetry 96 01/18/25 08:10 Oxygen Delivery Room Air 01/18/25 08:10 Temperature 97.2 F L 01/18/25 08:10 Pulse Rate 66 01/18/25 08:10 Respiratory Rate 16 01/18/25 08:10 Blood Pressure 107/64 01/18/25 08:10 Pulse Oximetry 96 01/18/25 08:10 Oxygen Delivery Room Air 01/18/25 08:10 Reviewed MDM - Wound/Laceration MDM Narrative Medical decision making narrative: Discussed physical exam findings c/w contact dermatitis to face. Reviewed RX. Advised supportive measures and signs/symptoms to go to the ER. Pt is appropriate for outpt treatment and f/u. Differential Diagnosis Differential diagnosis: Likely other ( viral exanthema, contact dermatitis, allergic dermatitis, eczema, urticaria, insect bites, impetigo, tinea, folliculitis) Discharge Plan Discharge Clinical Impression: Contact dermatitis Qualifiers: Contact dermatitis type: unspecified Contact dermatitis trigger: unspecified trigger Qualified Code(s): L25.9 - Unspecified contact dermatitis, unspecified cause Patient Disposition: Home Condition: Stable Instructions: Antibiotic Form, Poison Latisha (ED) Additional Instructions: Take steroids and Pepcid as directed. Benadryl every 8 hours as needed Cool compresses to the sites of itching, avoid hot water. Avoid scratching to reduce the risk of infection Tylenol for pain Follow up with your primary care provider as needed in 1 week Go to the ER for worsening symptoms or concerns (lip, tongue, throat swelling/itching, trouble breathing etc) Patient Language: German Prescriptions: New famotidine [Pepcid] 40 mg tablet 40 mg PO DAILY Qty: 7 0RF prednisone 20 mg tablet 20 mg PO DAILY Qty: 9 0RF Rx Instructions: take 2 tablets daily for 3 days, then 1 tablets daily for 3 days No Action rizatriptan 10 mg tablet,disintegrating See Rx Instructions PO .COMPLEX Qty: 9 12RF Rx Instructions: take 1 tab at onset of headache; if no relief may repeat 1 tab after at least 2 hrs; max = 3 tabs/24 hr PO simvastatin 40 mg tablet 40 mg PO DAILY Qty: 90 1RF levothyroxine 50 mcg tablet 50 mcg PO .COMPLEX Qty: 135 2RF Rx Instructions: 50 mcg orally; Take 1.5 tab W and 1 tab other days. citalopram 40 mg tablet 40 mg PO DAILY Qty: 30 5RF tramadol 50 mg tablet 50 mg PO Q6H PRN (Reason: pain) Qty: 120 0RF Follow-up/Referrals: Sandra Saldivar MD [Primary Care Provider] - Time of Disposition: 08:30
== END 2025-01-18 08:32 | disposition home or self-care (01) ==
PROVIDERS: Emergency Provider Nurse Practitioner Family; PCP Family Medicine
DX: L25.9 Unspecified contact dermatitis, unspecified cause (principal); G25.81 Restless legs syndrome; E03.9 Hypothyroidism, unspecified; E78.2 Mixed hyperlipidemia
CPT/HCPCS: 99213; G0463

== ENCOUNTER 2025-02-03 13:19 | Outpatient (CLI) | payer MEDICARE, SELFPAY ==
--- NOTE | ~2025-02-03 | XR_ITS ---
XR cervical spine 4-5V Ordering provider: Sandra Saldivar MD History: . M54.2 - Cervicalgia . Comparison: None. FINDINGS: VERTEBRAL BODIES: Normal height and alignment. No visible fracture or subluxation. The dens is intact . DISK SPACES: Well maintained. Multilevel uncovertebral joint osteoarthritic changes. Facet joint dise ase at the level of C3-C4, C4-C5 and C7-T1. PARASPINOUS SOFT TISSUES: No prevertebral soft tissue swelling. IMPRESSION: No acute osseous abnormality cervical spine. Multilevel facet joint disease and uncovertebral joint osteoarthritic changes. Reviewed, dictated and finalized at location A.
--- NOTE | ~2025-02-03 | XR_ITS ---
EXAM/ PROCEDURE: XR shoulder LT min 2V - 02/03/2025 13:24 CDT HISTORY: 64 years old Female with M25.512 - Pain in left shoulder COMPARISON: None available TECHNIQUE: Four view(s) FINDINGS/ IMPRESSION: There are no fractures or dislocations.Joint space narrowing, subchondral sclerosis, subchondral cyst formation and osteophyte formation, compatible with mild osteoarthritis. Reviewed, dictated and finalized at location A.
== END 2025-02-03 13:20 | disposition home or self-care (01) ==
PROVIDERS: PCP Family Medicine; Visit Provider Family Medicine
DX: M19.012 Primary osteoarthritis, left shoulder (principal); M25.812 Other specified joint disorders, left shoulder; M25.712 Osteophyte, left shoulder; M47.812 Spondylosis without myelopathy or radiculopathy, cervical region
CPT/HCPCS: 72050; 73030